=== PATIENT | female | born 1985 | race Caucasian/White ===

== ENCOUNTER → 2017-02-27 | Outpatient (CLI) | payer BC, OTHER ==
--- NOTE | 2017-02-27 09:55 | DIREP ---
PROCEDURE:XR ABDOMEN 2 VIEWS COMPARISON:None. INDICATIONS:LEFT SIDED FLANK PAIN X 3 DAYS, FEVER TECHNIQUE:Flat and upright views of the abdomen are provided. FINDINGS: BOWEL GAS PATTERN:Moderate stool throughout colon. CALCIFICATIONS:None significant. LUNG BASES:Clear. BONES:Normal. OTHER:Cholecystectomy clips. CONCLUSION:Moderate stool throughout colon. Dictated by: Yuriy Ovalle M.D. on 02/27/2017 at 10:10 AM
[2017-02-27 10:02] LABS: BASOPHIL % 0.5 % (0.0-0.2); EOSINOPHIL # 0.3 10^3/uL (0.0-0.2); EOSINOPHIL % 3.6 % (0.0-5.0); LYMPHOCYTES # 2.2 10^3/uL (1.0-4.8); LYMPHOCYTES % 29.4 % (24.0-44.0); MEAN CELL HGB 28.6 pg (26-34); MEAN CELL HGB CONCENTRATION 33.3 g/dL (33-37); MEAN CORP VOLUME 85.7 fL (78-100); MEAN PLATELET VOLUME 10.2 fL (7.8-11.0); MONOCYTES # 0.9 10^3/uL (0.3-0.8); NEUTROPHIL # 4.1 10^3/uL (1.8-7.7); NEUTROPHILS % 54.2 % (41.0-85.0); RED CELL DISTRIBUTION WIDTH 12.6 % (11.5-14.5); WHITE BLOOD CELL 7.5 10^3/uL (4.5-11.0)
[2017-02-27 10:16] LABS: CALCIUM 9.5 mg/dL (8.4-10.5); CARBON DIOXIDE 26.9 mmol/L (20.0-32)
== END | disposition home or self-care (01) ==
LOC: RAD 09:07
PROVIDERS: ATTEND Pediatrics
DX: K56.41 Fecal impaction (principal); Z90.49 Acquired absence of other specified parts of digestive tract
CPT/HCPCS: 36415; 74020; 80053; 85025; 85651; 86140; 87040

== ENCOUNTER → 2019-10-08 | Outpatient (CLI) | payer MEDICAID ==
--- NOTE | 2019-10-08 15:52 | DIREP ---
PROCEDURE:XRAY SPINE THORACIC 3 VWS COMPARISON:None. INDICATIONS:DORSALGIA TECHNIQUE:AP & lateral views of the thoracic spine and a swimmer's view of the cervicothoracic junction are provided. FINDINGS: ALIGNMENT:Normal. VERTEBRAE:Normal. DISK SPACES:Normal. OTHER:Cholecystectomy clips noted. CONCLUSION:No acute findings. Dictated by: Anselmo Dinero M.D. on 10/08/2019 at 03:50 PM
--- NOTE | 2019-10-08 15:53 | DIREP ---
PROCEDURE:XRAY SPINE LUMBAR 2-3 VWS COMPARISON:None. INDICATIONS:LBP TECHNIQUE:AP, lateral, and coned down lateral views of the lumbar spine are provided. FINDINGS: ALIGNMENT:Normal. VERTEBRAE:L5 spondylolysis with grade 1 spondylolisthesis. DISK SPACES:Normal. SPONDYLOLISTHESIS:L5 anterolisthesis measures 7 mm. SACROILIAC JOINTS:Normal. OTHER:Normal. CONCLUSION:L5 spondylolysis with grade 1 spondylolisthesis. Dictated by: Anselmo Dinero M.D. on 10/08/2019 at 03:51 PM
--- NOTE | 2019-10-08 15:54 | DIREP ---
PROCEDURE:XR SPINE CERVICAL 2 OR 3 VIEWS COMPARISON:None. INDICATIONS:NECK PAIN TECHNIQUE:AP, lateral, and dens views of the cervical spine are provided. FINDINGS: ALIGNMENT:Reversal of normal lordosis may be positional or secondary to muscle spasm. VERTEBRAE:Small posterior endplate osteophytes C6-7. DISK SPACES:Normal. CERVICAL RIBS:None. OTHER:Postoperative changes in the mandible and maxilla. CONCLUSION:Mild C6-7 degenerative disc disease. Reversal of the normal lordosis. Dictated by: Anselmo Dienro M.D. on 10/08/2019 at 03:52 PM
== END | disposition home or self-care (01) ==
LOC: RAD 15:05
PROVIDERS: ATTEND Nurse Practitioner Family
DX: M50.323 Other cervical disc degeneration at C6-C7 level (principal); Z74.8 Other problems related to care provider dependency; M54.9 Dorsalgia, unspecified; M54.5 Low back pain; M43.06 Spondylolysis, lumbar region
CPT/HCPCS: 72040; 72072; 72100